=== PATIENT | male | born 1970 | race Caucasian/White ===

== ENCOUNTER 2019-05-27 18:29 | Inpatient (IN) | payer BC ==
[2019-05-27 19:36] LABS: ADD MAN DIFF? NO
[2019-05-27] MEDS: IBUPROFEN 600 MG TAB PO (19:36)
[2019-05-27] MEDS: CEFTRIAXONE 1 GM/50 ML (PMX) 50 ML IVPB (19:36)
[2019-05-27] MEDS: SODIUM CHLORIDE 0.9% 1L BAG IV* (19:36)
[2019-05-27 19:51] LABS: BASOPHILS % 0.3 % (0.0-2.0); EOSINOPHILS % 0.3 % (0.0-7.0); HEMATOCRIT 45.7 % (42.0-52.0); HEMOGLOBIN 15.2 g/dl (14.0-18.0); LYMPHOCYTES % 6.4 % (15.0-51.0); MEAN CORPUSCULAR HEMOGLOBIN 30.3 pg (29.0-33.0); MEAN CORPUSCULAR HGB CONC 33.3 g/dl (32.0-37.0); MEAN CORPUSCULAR VOLUME 91.2 fl (82.0-101.0); MEAN PLATELET VOLUME 10.4 fl (7.4-10.4); MONOCYTE # 1.2 10^3/ul (0.3-0.9); MONOCYTES % 7.6 % (0.0-11.0); NEUTROPHIL # 12.8 10^3/ul (1.6-7.5); NEUTROPHILS % 84.9 % (39.0-77.0); PLATELET COUNT 188 10^3/UL (140-415); RED BLOOD COUNT 5.01 10^6/ul (4.70-6.10); RED CELL DISTRIBUTION WIDTH 12.2 % (11.5-14.5)
[2019-05-27 19:51] LABS: WHITE BLOOD COUNT 15.1 10^3/ul (4.8-10.8)
[2019-05-27 20:01] LABS: ADD UMIC YES; UR ASCORBIC ACID NEGATIVE (NEGATIVE); UR BILIRUBIN (Dip) NEGATIVE (NEGATIVE); UR BLOOD (Dip) NEGATIVE (NEGATIVE); UR CLARITY CLEAR (CLEAR); UR COLOR YELLOW (YELLOW); UR GLUCOSE (Dip) 3+ mg/dL (NEGATIVE); UR KETONES (Dip) 1+ mg/dL (NEGATIVE); UR LEUKOCYTE ESTERASE (Dip) 1+ Leu/ul (NEGATIVE); UR NITRITE (Dip) NEGATIVE (NEGATIVE); UR RBC 7 /HPF (0-5); UR SPECIFIC GRAVITY (Dip) 1.035 (1.003-1.030); UR TOTAL PROTEIN (Dip) NEGATIVE (NEGATIVE); UR UROBILINOGEN (Dip) NEGATIVE (NEGATIVE); UR WBC 5 /HPF (0-5)
[2019-05-27 20:10] LABS: ALANINE AMINOTRANSFERASE 40 IU/L (13-69); ALBUMIN 4.8 g/dl (3.3-4.9); ALBUMIN/GLOBULIN RATIO 1.54; ALKALINE PHOSPHATASE 148 IU/L (42-121); ANION GAP 13 (5-13); ASPARTATE AMINO TRANSFERASE 32 IU/L (15-46); BILIRUBIN,INDIRECT 0.6 mg/dl (0-1.1); BILIRUBIN,TOTAL 0.6 mg/dl (0.2-1.3); BLOOD UREA NITROGEN 12 mg/dl (7-20); CALCIUM 10.2 mg/dl (8.4-10.2); CARBON DIOXIDE 25 mmol/L (21-31); CHLORIDE 99 mmol/L (97-110); CREATININE 0.85 mg/dl (0.61-1.24); Estimated GFR > 60 mL/min (>60); GLUCOSE 343 mg/dl (70-220); INR 0.94; LIPASE 134 U/L (23-300); POTASSIUM 3.9 mmol/L (3.5-5.1); PROTIME 12.7 Sec (11.9-14.9); SODIUM 137 mmol/L (135-144); TOTAL PROTEIN 7.9 g/dl (6.1-8.1)
[2019-05-27 20:11] LABS: PARTIAL THROMBOPLASTIN TIME 25.2 Sec (23.0-35.0)
[2019-05-27 20:19] LABS: TROPONIN-I < 0.012 ng/ml (0.000-0.120)
[2019-05-27] MEDS ORDERED: hydrALAzine 20 MG INJ IV (20:30)
[2019-05-27] MEDS ORDERED: DOCUSATE SODIUM 100 MG CAP PO (20:30)
[2019-05-27] MEDS ORDERED: ONDANSETRON 4 MG INJ IV (20:30)
[2019-05-27] MEDS ORDERED: BISACODYL (EC) 5 MG TAB PO (20:30)
[2019-05-27] MEDS: IOHEXOL 14.3 MG(I)/ML (ADULT) BTL PO (20:30)
[2019-05-27] MEDS ORDERED: NACL 0.9% 3 ML SYG IV (20:30)
[2019-05-27] MEDS ORDERED: ENALAPRILAT 1.25 MG INJ IV (21:00)
[2019-05-27] MEDS ORDERED: DEXTROSE 50% 50 ML SYRINGE IV ×2 (21:00)
[2019-05-27] MEDS ORDERED: GLUCOSE GEL 15 GRAM TUBE BUCCAL (21:00)
[2019-05-27] MEDS ORDERED: GLUCAGON 1 MG INJ IM (21:00)
[2019-05-27] MEDS ORDERED: GLUCOSE GEL 15 GRAM TUBE PO ×2 (21:00)
[2019-05-27] MEDS: INSULIN ASPART [NOVOLOG] 3 ML PEN SC (21:00)
[2019-05-27] MEDS ORDERED: CIPROFLOXACIN 400MG/D5W 200 ML IVPB (21:00)
[2019-05-27] MEDS: LACTATED RINGER'S 2,330 ML IV (21:03)
[2019-05-27] MEDS: IOHEXOL 300MG/ML 150 ML BTL (21:24)
[2019-05-27] MEDS: SOD CHLORIDE 0.9% 100 ML (21:24)
[2019-05-27 21:47] LABS: LACTIC ACID 1.6 mmol/L (0.5-2.0)
[2019-05-27] MEDS ORDERED: metroNIDAZOLE 500 MG/NS (PMX) 100 ML IVPB (22:00)
[2019-05-27] MEDS: PIPER-TAZO 3.375 GM IV (PMX) 100 ML IVPB (22:50)
[2019-05-28 00:24] LABS: LACTIC ACID 1.5 mmol/L (0.5-2.0)
[2019-05-28] MEDS: INSULIN ASPART [NOVOLOG] 3 ML PEN SC ×6 (01:00→20:53)
[2019-05-28] MEDS: ACETAMINOPHEN 325 MG TAB PO ×4 (01:35→21:03)
[2019-05-28] MEDS: ACCU-CHEK XX (02:00)
[2019-05-28] MEDS: PIPER-TAZO 3.375 GM IV (PMX) 100 ML IVPB ×4 (02:01→17:27)
[2019-05-28] MEDS: SOD CHLORIDE 0.9% 1,000 ML IV ×3 (02:01→15:01)
[2019-05-28 05:47] LABS: ADD MAN DIFF? NO
[2019-05-28 05:52] LABS: BASOPHILS % 0.4 % (0.0-2.0); EOSINOPHILS % 0.2 % (0.0-7.0); HEMOGLOBIN 12.4 g/dl (14.0-18.0); LYMPHOCYTES # 1.1 10^3/ul (0.8-2.9); LYMPHOCYTES % 12.6 % (15.0-51.0); MEAN CORPUSCULAR HEMOGLOBIN 30.7 pg (29.0-33.0); MEAN CORPUSCULAR HGB CONC 33.5 g/dl (32.0-37.0); MEAN CORPUSCULAR VOLUME 91.6 fl (82.0-101.0); MONOCYTE # 0.6 10^3/ul (0.3-0.9); MONOCYTES % 6.5 % (0.0-11.0); NEUTROPHIL # 6.8 10^3/ul (1.6-7.5); NEUTROPHILS % 79.8 % (39.0-77.0); PLATELET COUNT 163 10^3/UL (140-415); RED BLOOD COUNT 4.04 10^6/ul (4.70-6.10); RED CELL DISTRIBUTION WIDTH 12.1 % (11.5-14.5)
[2019-05-28 05:52] LABS: WHITE BLOOD COUNT 8.5 10^3/ul (4.8-10.8)
[2019-05-28 06:44] LABS: ALANINE AMINOTRANSFERASE 37 IU/L (13-69); ALBUMIN 3.1 g/dl (3.3-4.9); ALBUMIN/GLOBULIN RATIO 1.19; ALKALINE PHOSPHATASE 73 IU/L (42-121); ANION GAP 6 (5-13); ASPARTATE AMINO TRANSFERASE 30 IU/L (15-46); BILIRUBIN,INDIRECT 0.8 mg/dl (0-1.1); BILIRUBIN,TOTAL 0.8 mg/dl (0.2-1.3); BLOOD UREA NITROGEN 10 mg/dl (7-20); CALCIUM 8.2 mg/dl (8.4-10.2); CARBON DIOXIDE 27 mmol/L (21-31); CHLORIDE 105 mmol/L (97-110); CHOLESTEROL 90 mg/dl (100-200); CREATININE 0.81 mg/dl (0.61-1.24); Estimated GFR > 60 mL/min (>60); GLUCOSE 245 mg/dl (70-220); HDL CHOLESTEROL 30 mg/dl (28-71); LDL CHOLESTEROL,CALCULATED 34 mg/dl; MAGNESIUM 1.3 mg/dl (1.7-2.5); POTASSIUM 3.7 mmol/L (3.5-5.1); SODIUM 138 mmol/L (135-144); TOTAL PROTEIN 5.7 g/dl (6.1-8.1); TRIGLYCERIDES 132 mg/dl (0-149)
[2019-05-28] MEDS: BISACODYL (EC) 5 MG TAB PO (14:02)
[2019-05-28] MEDS: POLYETHYLENE GLYCOL 3350 119 GM POWDER PO (17:36)
[2019-05-28] MEDS: MAGNESIUM CITRATE 300 ML BTL PO (17:36)
[2019-05-28] MEDS: ATORVASTATIN 80 MG TAB PO (20:49)
[2019-05-29] MEDS: PIPER-TAZO 3.375 GM IV (PMX) 100 ML IVPB ×5 (01:03→23:46)
[2019-05-29] MEDS: ACCU-CHEK XX (02:00)
[2019-05-29] MEDS: ACETAMINOPHEN 325 MG TAB PO ×3 (06:22→22:29)
[2019-05-29] MEDS: POLYETHYLENE GLYCOL 3350 119 GM POWDER PO (06:35)
[2019-05-29 07:24] LABS: FREE THYROXINE INDEX (Calc) 2.65 ug/ml (0.65-3.89); T3 UPTAKE 38.4 % (23.5-40.5); T4 (THYROXINE) 6.9 ug/dl (5.5-11.0)
[2019-05-29 07:38] LABS: THYROID STIMULATING HORMONE 0.902 MIU/L (0.465-4.680)
[2019-05-29] MEDS: INSULIN GLARGINE [LANTus] (100 UNITS/ML) SYG SC ×2 (08:00→23:00)
[2019-05-29] MEDS: BISACODYL (EC) 5 MG TAB PO (08:21)
[2019-05-29] MEDS: LISINOPRIL 20 MG TAB PO (08:21)
[2019-05-29] MEDS: HYDROCHLOROTHIAZIDE 12.5 MG CAP PO (08:22)
[2019-05-29] MEDS: INSULIN ASPART [NOVOLOG] 3 ML PEN SC ×7 (09:21→23:01)
[2019-05-29] MEDS: LIDOCAINE 2% (SDV) 5 ML INJ (13:10)
[2019-05-29] MEDS: PROPOFOL 40 ML (13:10)
[2019-05-29] MEDS ORDERED: ONDANSETRON 4 MG INJ IV (13:30)
[2019-05-29] MEDS: PROPOFOL 20 ML ×2 (13:52)
[2019-05-29] MEDS: FLUCONAZOLE 200 MG (PMX) 100 ML IVPB (16:45)
[2019-05-29 17:18] LABS: C-REACTIVE PROTEIN 6.4 mg/dl (0.0-0.9)
[2019-05-29 17:55] LABS: HIV 1&2 ANTIBODY NEGATIVE (NEGATIVE)
[2019-05-29] MEDS: ATORVASTATIN 80 MG TAB PO (22:28)
[2019-05-29] MEDS: CLOTRIMAZOLE 1% 30 GM CR TOP (23:46)
[2019-05-30] MEDS: ACCU-CHEK XX ×2 (02:05→04:28)
[2019-05-30] MEDS: INSULIN ASPART [NOVOLOG] 3 ML PEN SC ×9 (02:14→20:39)
[2019-05-30] MEDS: PIPER-TAZO 3.375 GM IV (PMX) 100 ML IVPB ×3 (05:22→18:26)
[2019-05-30 07:16] LABS: ADD MAN DIFF? NO
[2019-05-30 07:25] LABS: WHITE BLOOD COUNT 6.2 10^3/ul (4.8-10.8)
[2019-05-30 07:25] LABS: BASOPHILS % 0.3 % (0.0-2.0); EOSINOPHILS # 0.1 10^3/ul (0.0-0.5); EOSINOPHILS % 2.1 % (0.0-7.0); HEMATOCRIT 38.8 % (42.0-52.0); HEMOGLOBIN 12.9 g/dl (14.0-18.0); LYMPHOCYTES # 2.3 10^3/ul (0.8-2.9); LYMPHOCYTES % 36.7 % (15.0-51.0); MEAN CORPUSCULAR HEMOGLOBIN 29.9 pg (29.0-33.0); MEAN CORPUSCULAR HGB CONC 33.2 g/dl (32.0-37.0); MEAN CORPUSCULAR VOLUME 89.8 fl (82.0-101.0); MEAN PLATELET VOLUME 9.9 fl (7.4-10.4); MONOCYTE # 0.7 10^3/ul (0.3-0.9); MONOCYTES % 11.6 % (0.0-11.0); NEUTROPHIL # 3.1 10^3/ul (1.6-7.5); NEUTROPHILS % 49.1 % (39.0-77.0); PLATELET COUNT 178 10^3/UL (140-415); RED BLOOD COUNT 4.32 10^6/ul (4.70-6.10); RED CELL DISTRIBUTION WIDTH 12.1 % (11.5-14.5)
[2019-05-30 07:42] LABS: ANION GAP 6 (5-13); BLOOD UREA NITROGEN 11 mg/dl (7-20); CALCIUM 8.9 mg/dl (8.4-10.2); CARBON DIOXIDE 26 mmol/L (21-31); CHLORIDE 105 mmol/L (97-110); CREATININE 0.84 mg/dl (0.61-1.24); Estimated GFR > 60 mL/min (>60); GLUCOSE 224 mg/dl (70-220); MAGNESIUM 1.9 mg/dl (1.7-2.5); POTASSIUM 3.5 mmol/L (3.5-5.1); SODIUM 137 mmol/L (135-144)
[2019-05-30] MEDS: HYDROCHLOROTHIAZIDE 12.5 MG CAP PO (08:11)
[2019-05-30] MEDS: LISINOPRIL 20 MG TAB PO (08:12)
[2019-05-30] MEDS: CLOTRIMAZOLE 1% 30 GM CR TOP ×2 (08:16→20:56)
[2019-05-30] MEDS: LINAGLIPTIN 5 MG TABLET PO (12:30)
[2019-05-30 13:25] LABS: HEPATITIS B SURFACE ANTIGEN NEGATIVE (NEGATIVE)
[2019-05-30 13:43] LABS: HEPATITIS C VIRAL ANTIBODY NEGATIVE (NEGATIVE)
[2019-05-30 16:08] LABS: RAPID PLASMA REAGIN NONREACTIVE (NR)
[2019-05-30] MEDS: BARIUM SULFATE 0.1% 450 ML BTL (VOLUMEN) PO ×3 (16:15→17:15)
[2019-05-30] MEDS: FLUCONAZOLE 200 MG (PMX) 100 ML IVPB (16:23)
[2019-05-30] MEDS ORDERED: GLUCAGON 1 MG INJ IV (16:30)
[2019-05-30] MEDS: IOHEXOL 300MG/ML 150 ML BTL (17:47)
[2019-05-30] MEDS: SOD CHLORIDE 0.9% 100 ML (17:47)
[2019-05-30] MEDS: GLUCAGON 1 MG INJ IV (17:58)
[2019-05-30] MEDS: ATORVASTATIN 80 MG TAB PO (20:56)
[2019-05-30] MEDS: ACETAMINOPHEN 325 MG TAB PO (20:56)
[2019-05-30] MEDS: INSULIN GLARGINE [LANTus] (100 UNITS/ML) SYG SC (22:19)
[2019-05-31] MEDS: PIPER-TAZO 3.375 GM IV (PMX) 100 ML IVPB ×5 (01:53→23:44)
[2019-05-31] MEDS: HYDROmorphONE 0.5 MG/0.5 ML SYG IV ×2 (01:59→23:47)
[2019-05-31] MEDS: ACCU-CHEK XX (02:00)
[2019-05-31 05:47] LABS: ADD MAN DIFF? NO
[2019-05-31 05:56] LABS: BASOPHILS % 0.6 % (0.0-2.0); EOSINOPHILS # 0.2 10^3/ul (0.0-0.5); EOSINOPHILS % 3.1 % (0.0-7.0); HEMATOCRIT 39.2 % (42.0-52.0); HEMOGLOBIN 13.1 g/dl (14.0-18.0); LYMPHOCYTES # 3.2 10^3/ul (0.8-2.9); LYMPHOCYTES % 47.2 % (15.0-51.0); MEAN CORPUSCULAR HEMOGLOBIN 30.3 pg (29.0-33.0); MEAN CORPUSCULAR HGB CONC 33.4 g/dl (32.0-37.0); MEAN CORPUSCULAR VOLUME 90.5 fl (82.0-101.0); MEAN PLATELET VOLUME 9.6 fl (7.4-10.4); MONOCYTE # 0.7 10^3/ul (0.3-0.9); MONOCYTES % 10.4 % (0.0-11.0); NEUTROPHIL # 2.6 10^3/ul (1.6-7.5); NEUTROPHILS % 38.4 % (39.0-77.0); PLATELET COUNT 195 10^3/UL (140-415); RED BLOOD COUNT 4.33 10^6/ul (4.70-6.10); RED CELL DISTRIBUTION WIDTH 12.2 % (11.5-14.5)
[2019-05-31 05:56] LABS: WHITE BLOOD COUNT 6.7 10^3/ul (4.8-10.8)
[2019-05-31 06:18] LABS: ANION GAP 7 (5-13); BLOOD UREA NITROGEN 14 mg/dl (7-20); CALCIUM 9.1 mg/dl (8.4-10.2); CARBON DIOXIDE 27 mmol/L (21-31); CHLORIDE 105 mmol/L (97-110); CREATININE 0.85 mg/dl (0.61-1.24); Estimated GFR > 60 mL/min (>60); GLUCOSE 188 mg/dl (70-220); POTASSIUM 3.4 mmol/L (3.5-5.1); SODIUM 139 mmol/L (135-144)
[2019-05-31 07:21] LABS: ERYTHROCYTE SEDIMENTATION RATE 34 mm/Hr (0-15)
[2019-05-31] MEDS: INSULIN ASPART [NOVOLOG] 3 ML PEN SC ×7 (08:30→20:38)
[2019-05-31] MEDS: LINAGLIPTIN 5 MG TABLET PO (08:33)
[2019-05-31] MEDS: LISINOPRIL 20 MG TAB PO (08:33)
[2019-05-31] MEDS: HYDROCHLOROTHIAZIDE 12.5 MG CAP PO (08:34)
[2019-05-31] MEDS: CLOTRIMAZOLE 1% 30 GM CR TOP ×2 (08:35→20:40)
[2019-05-31] MEDS: POTASSIUM CHLORIDE (SR) 20 MEQ TAB PO (11:39)
[2019-05-31] MEDS: FLUCONAZOLE 200 MG (PMX) 100 ML IVPB (17:27)
[2019-05-31] MEDS: ATORVASTATIN 80 MG TAB PO (20:38)
[2019-05-31] MEDS: INSULIN GLARGINE [LANTus] (100 UNITS/ML) SYG SC (20:39)
[2019-06-01] MEDS: ACCU-CHEK XX (01:02)
[2019-06-01 05:20] LABS: ADD MAN DIFF? NO
[2019-06-01 05:32] LABS: WHITE BLOOD COUNT 7.5 10^3/ul (4.8-10.8)
[2019-06-01 05:32] LABS: BASOPHIL # 0.1 10^3/ul (0.0-0.1); BASOPHILS % 0.8 % (0.0-2.0); EOSINOPHILS # 0.3 10^3/ul (0.0-0.5); EOSINOPHILS % 3.3 % (0.0-7.0); HEMATOCRIT 40.2 % (42.0-52.0); HEMOGLOBIN 13.7 g/dl (14.0-18.0); LYMPHOCYTES # 3.3 10^3/ul (0.8-2.9); LYMPHOCYTES % 44.5 % (15.0-51.0); MEAN CORPUSCULAR HEMOGLOBIN 30.5 pg (29.0-33.0); MEAN CORPUSCULAR HGB CONC 34.1 g/dl (32.0-37.0); MEAN CORPUSCULAR VOLUME 89.5 fl (82.0-101.0); MEAN PLATELET VOLUME 9.4 fl (7.4-10.4); MONOCYTE # 0.8 10^3/ul (0.3-0.9); NEUTROPHIL # 3.1 10^3/ul (1.6-7.5); NEUTROPHILS % 41.1 % (39.0-77.0); PLATELET COUNT 214 10^3/UL (140-415); RED BLOOD COUNT 4.49 10^6/ul (4.70-6.10); RED CELL DISTRIBUTION WIDTH 12.4 % (11.5-14.5)
[2019-06-01] MEDS: PIPER-TAZO 3.375 GM IV (PMX) 100 ML IVPB ×2 (05:50→12:00)
[2019-06-01 05:53] LABS: ANION GAP 7 (5-13); BLOOD UREA NITROGEN 14 mg/dl (7-20); CALCIUM 9.4 mg/dl (8.4-10.2); CARBON DIOXIDE 27 mmol/L (21-31); CHLORIDE 105 mmol/L (97-110); CREATININE 0.86 mg/dl (0.61-1.24); Estimated GFR > 60 mL/min (>60); GLUCOSE 171 mg/dl (70-220); POTASSIUM 3.5 mmol/L (3.5-5.1); SODIUM 139 mmol/L (135-144)
[2019-06-01] MEDS: LINAGLIPTIN 5 MG TABLET PO (08:16)
[2019-06-01] MEDS: LISINOPRIL 20 MG TAB PO ×2 (08:20→08:30)
[2019-06-01] MEDS: HYDROCHLOROTHIAZIDE 12.5 MG CAP PO ×2 (08:20→08:29)
[2019-06-01] MEDS: CLOTRIMAZOLE 1% 30 GM CR TOP (08:21)
[2019-06-01] MEDS: INSULIN ASPART [NOVOLOG] 3 ML PEN SC ×4 (08:22→12:31)
== END 2019-06-01 12:34 | disposition home or self-care (01) | DRG 872 ==
LOC: 6WM 20:13 → E/R 18:29 → PP2 05-30 01:36
PROVIDERS: Family Medicine
PROC: 0DBB8ZX Excision of Ileum, Via Natural or Artificial Opening Endoscopic, Diagnostic (ICD-10-PCS; principal; 2019-05-29 12:00)
PROC: 0DBP8ZZ Excision of Rectum, Via Natural or Artificial Opening Endoscopic (ICD-10-PCS; 2019-05-29 12:00)
PROC: 0DBN8ZX Excision of Sigmoid Colon, Via Natural or Artificial Opening Endoscopic, Diagnostic (ICD-10-PCS; 2019-05-29 12:00)
PROC: 0DBF8ZX Excision of Right Large Intestine, Via Natural or Artificial Opening Endoscopic, Diagnostic (ICD-10-PCS; 2019-05-29 12:00)
DX: A41.9 Sepsis, unspecified organism (principal); N39.0 Urinary tract infection, site not specified; E87.2 Acidosis; R65.20 Severe sepsis without septic shock; E83.42 Hypomagnesemia; E11.65 Type 2 diabetes mellitus with hyperglycemia; K52.9 Noninfective gastroenteritis and colitis, unspecified; K62.1 Rectal polyp; K64.9 Unspecified hemorrhoids; K76.0 Fatty (change of) liver, not elsewhere classified; I10 Essential (primary) hypertension; E78.5 Hyperlipidemia, unspecified; E66.9 Obesity, unspecified; R36.9 Urethral discharge, unspecified; E11.69 Type 2 diabetes mellitus with other specified complication; N48.1 Balanitis; N47.1 Phimosis; Z71.3 Dietary counseling and surveillance; Z79.84 Long term (current) use of oral hypoglycemic drugs
CPT/HCPCS: 36415; 71045; 74176; 74177; 80048; 80053; 80061; 81001; 82962; 83036; 83605; 83690; 83735; 84436; 84443; 84479; 84484; 85025; 85610; 85651; 85730; 86140; 86592; 86703; 86803; 86850; 86900; 86901; 87040-91; 87086; 87340; 87591; 88305; 93005; 96374; 99285-25